=== PATIENT | female | born 1965 | race Caucasian/White ===

== ENCOUNTER → 2016-08-05 | Outpatient (CLI) | payer SELFPAY | END | disposition home or self-care (01) | LOC: RAD.S 14:54 | DX: R60.0 Localized edema (principal); R59.0 Localized enlarged lymph nodes ==

== ENCOUNTER → 2016-09-16 | Outpatient (CLI) | payer SELFPAY | END | disposition home or self-care (01) | LOC: RAD.S 08:00 | DX: K74.60 Unspecified cirrhosis of liver (principal); K80.20 Calculus of gallbladder without cholecystitis without obstruction; K76.6 Portal hypertension; I86.8 Varicose veins of other specified sites; Z79.899 Other long term (current) drug therapy ==